=== PATIENT | male | born 1990 ===

== ENCOUNTER 2018-03-10 10:39 | Emergency (ER) | payer OTHER ==
[~2018-03-10] VITALS: Ht 177.8 cm; Wt 77.1 kg
== END 2018-03-10 14:06 | disposition home or self-care (01) ==
LOC: ER 10:39
DX: S00.33XA Contusion of nose, initial encounter (principal); W22.8XXA Striking against or struck by other objects, initial encounter; Y93.89 Activity, other specified; Y92.69 Other specified industrial and construction area as the place of occurrence of the external cause; Y99.8 Other external cause status